=== PATIENT | female | born 1960 | race Caucasian/White ===

== ENCOUNTER 2018-04-20 09:39 | Emergency (ER) | payer OTHER ==
[~2018-04-20] VITALS: Ht 175.3 cm; Wt 87.5 kg
[2018-04-20 09:49] VITALS: Ht 175.3 cm; Wt 87.5 kg
[2018-04-20 11:50] VITALS: BP 149/92
== END 2018-04-20 11:50 | disposition home or self-care (01) ==
LOC: ED 09:39
DX: M54.42 Lumbago with sciatica, left side (principal); J45.909 Unspecified asthma, uncomplicated; F32.9 Major depressive disorder, single episode, unspecified; E03.9 Hypothyroidism, unspecified; Z90.710 Acquired absence of both cervix and uterus; Z90.89 Acquired absence of other organs
CPT/HCPCS: J1885

== ENCOUNTER 2019-06-03 06:17 | Day surgery (SDC) | payer OTHER ==
[~2019-06-03] VITALS: Ht 175.3 cm; Wt 90.7 kg
[2019-06-03 06:37] VITALS: BP 151/92
[2019-06-03 10:51] VITALS: BP 151/89
== END 2019-06-03 10:40 | disposition home or self-care (01) ==
LOC: GI 06:17 → OR 08:00 → GI 08:00
DX: K62.5 Hemorrhage of anus and rectum (principal); D12.4 Benign neoplasm of descending colon; K29.50 Unspecified chronic gastritis without bleeding; K57.30 Diverticulosis of large intestine without perforation or abscess without bleeding; K20.8 Other esophagitis; E03.9 Hypothyroidism, unspecified; J45.909 Unspecified asthma, uncomplicated; M17.0 Bilateral primary osteoarthritis of knee; Z90.710 Acquired absence of both cervix and uterus; Z98.890 Other specified postprocedural states; Z79.899 Other long term (current) drug therapy; Z90.49 Acquired absence of other specified parts of digestive tract
CPT/HCPCS: 43235; 45378; J1200; J1610; J2175; J2250; J2310; J3010; J3490